=== PATIENT | female | born 1970 | race Hispanic/Latino ===

== ENCOUNTER 2020-03-12 14:32 | Emergency (ER) | payer BC ==
[2020-03-12] MEDS ORDERED: KETOROLAC TROMETHAMINE 60 MG/2 ML VIAL IM ONE (15:30)
[2020-03-12] MEDS ORDERED: CLONIDINE HCL 0.1 MG TAB PO ONE (15:30)
--- NOTE | 2020-03-12 16:45 | Diagnostic Imaging Report ---
EXAMINATION: CHEST 2 VIEWS INDICATION: Chest pain, trauma COMPARISON: None FINDINGS: LINES/TUBES:None LUNGS:The lungs are well-inflated. No focal consolidation or pulmonary edema. PLEURA:No pleural effusion or pneumothorax. MEDIASTINUM:The cardiomediastinal silhouette appears normal in size and shape. BONES/SOFT TISSUES:No acute osseous injury. ABDOMEN:No free air under the diaphragm. IMPRESSION: No focal pneumonia or pulmonary edema. No radiographic evidence of acute traumatic injury to the thorax. Signed by: Roseline Medellin MD on 03/12/2020 4:42 PM
--- NOTE | 2020-03-12 19:09 | Emergency Department Note ---
History of Present Illnes History of Present Illness Chief Complaint: General Medicine Complaints History of Present Illness This is a 49 year old female arrives the ED with sternal chest pain after mechanical fall a few days ago. Patient states pain is worse on palpation and motion. Patient denies any shortness of breath.. Historian: Patient Arrival Mode: Car Onset (how long ago): day(s) Severity: mild Onset quality: sudden Duration (how long): day(s) Timing of current episode: constant Progression: unchanged Chronicity: new Context: Reports trauma/injury Relieving factors: none Exacerbating factors: none Associated symptoms: Reports denies other symptoms Past Medical/Family History Physician Review I have reviewed the patient's past medical and family history. Any updates have been documented here. Past Medical History Recent Fever: No Clinical Suspicion of Infectio: No New/Unexplained Change in Ment: No Review of Systems Review of Systems Constitutional: Reports no symptoms EENTM: Reports no symptoms Cardiovascular: Reports no symptoms, Reports as per HPI, Reports chest pain Respiratory: Reports no symptoms Gastrointestinal: Reports no symptoms Genitourinary: Reports no symptoms Musculoskeletal: Reports no symptoms Integumentary: Reports no symptoms Neurological: Reports no symptoms Psychological: Reports no symptoms Endocrine: Reports no symptoms Hematological/Lymphatic: Reports no symptoms Physical Exam Related Data Allergies: Coded Allergies: No Known Allergies (Unverified , 03/12/20) Triage Vital Signs Vital Signs Date Time Temp Pulse Resp B/P (MAP) Pulse Ox O2 Delivery O2 Flow Rate FiO2 03/12/20 15:24 97.8 77 18 146/124 100 Room Air Vital signs reviewed: Yes Physical Exam CONSTITUTIONAL Constitutional: Present well-developed, Present well-nourished HENT HENT: Present normocephalic, Present atraumatic, Present oropharynx clear/moist, Present nose normal HENT L/R: Present left ext ear normal, Present right ext ear normal EYES Eyes: Reports PERRL, Reports conjunctivae normal NECK Neck: Present ROM normal PULMONARY Pulmonary: Present effort normal, Present breath sounds normal CARDIOVASCULAR Cardiovascular: Present regular rhythm, Present heart sounds normal, Present capillary refill normal, Present normal rate, Present other (tenderness over palpation of sternum, no bruising, no ecchymoses, no step-off, no crepitus) GASTROINTESTINAL Abdominal: Present soft, Present nontender, Present bowel sounds normal GENITOURINARY Genitourinary: Present exam deferred SKIN Skin: Present warm, Present dry MUSCULOSKELETAL Musculoskeletal: Present ROM normal NEUROLOGICAL Neurological: Present alert, Present oriented x 3, Present no gross motor or s ensory deficits PSYCHOLOGICAL Psychological: Present mood/affect normal, Present judgement normal Results Imaging Imaging results reviewed: Yes Imaging Comments Normal Assessment & Plan Medical Decision Making MDM 49-year-old female arrived to the ED with traumatic chest pain, normal chest x- ray, patient with marked elevated hypertension. Patient with no history of high blood pressure. Patient did not wish to have lab work done in the emergency department. Patient's blood pressure improved with clonidine and discharged home on hydrochlorothiazide, outpatient cardiology referral given., Aortic dissection, aneurysm and other life threatening cardiac/mediastinal etiologies considered at time of discharge. Assessment & Plan Final Impression: (1) Chest pain Depart Disposition: HOME, SELF-CARE Last Vital Signs Date Time Temp Pulse Resp B/P (MAP) Pulse Ox O2 Delivery O2 Flow Rate FiO2 03/12/20 16:02 246/124 03/12/20 15:24 97.8 77 18 100 Room Air Medications in the ED Ketorolac Tromethamine 60 mg ONCE ONCE IM Last administered on 03/12/20at 16:01; Admin Dose 60 MG; Start 03/12/20 at 15:30; Stop 03/12/20 at 15:32; Status DC Clonidine HCl 0.1 mg ONCE ONCE PO Last administered on 03/12/20at 16:02; Admin Dose 0.1 MG; Start 03/12/20 at 15:30; Stop 03/12/20 at 15:32; Status DC FARIHA CHANG, Mar 12, 2020 19:09
== END 2020-03-12 17:32 | disposition home or self-care (01) ==
LOC: ER 15:24
DX: R07.89 Other chest pain (principal); W18.30XA Fall on same level, unspecified, initial encounter
CPT/HCPCS: 71046; 99282; J1885